=== PATIENT | male | born 1995 | race Caucasian/White ===

== ENCOUNTER 2019-10-05 11:26 | Emergency (ER) | payer SELFPAY ==
[~2019-10-05] VITALS: Ht 175.3 cm; Wt 65.8 kg
[2019-10-05 11:46] VITALS: BP 124/65
--- NOTE | 2019-10-05 12:40 | PHYS DOC ---
Past Medical History Past Medical History: No Pertinent History Past Surgical History: No Surgical History Alcohol Use: Rarely Drug Use: None Adult General Chief Complaint Chief Complaint: DENTAL PROBLEM [facility] HPI Patient is a 24 year old male who presents to the emergency department with complaints of left upper dental pain for the last 2 days. Patient denies any ear pain, sore throat, cough, nausea, vomiting, diarrhea, headache, dizziness, fever, or rash. Patient currently rates his pain a 7 out of 10 on pain scale he denies any alleviating factors. Patient states he has a dental appointment in a few months to have the tooth taken care of. He denies any pus drainage in his mouth. All other ROS is neg unless otherwise noted in HPI. Review of Systems Review of Systems sEE aBOVE Allergies Allergies Allergies Coded Allergies Type Severity Reaction Last Updated Verified No Known Drug Allergies 10/05/19 No Physical Exam Physical Exam See Above Constitutional: Well developed, well nourished, no acute distress, non-toxic appearance. [] HENT: Normocephalic, atraumatic, bilateral external ears normal, bilateral TMs normal oropharynx moist, no oral exudates, nose normal; dental decay noted in left upper quadrant with broken tooth, mild gingival erythema, no visible abscess or fluctuant area noted in the gingiva [] Eyes: PERRLA, EOMI, conjunctiva normal, no discharge. [] Neck: Normal range of motion, no tenderness, supple, no stridor. [] Cardiovascular:Heart rate regular rhythm, no murmur [] Lungs & Thorax: Bilateral breath sounds clear to auscultation; regular respirations, no retractions [] Skin: Warm, dry, no erythema, no rash. [] Extremities: No cyanosis, ROM intact Neurologic: Alert and oriented X 3, no focal deficits noted. [] Psychologic: Affect normal, judgement normal, mood normal. [] Current Patient Data Vital Signs Vital Signs Date Time Temp Pulse Resp B/P (MAP) Pulse Ox O2 Delivery O2 Flow Rate FiO2 10/05/19 11:46 98.0 65 16 124/65 (84) 97 Room Air 98.0 EKG EKG [] Radiology/Procedures Radiology/Procedures [] Course & Med Decision Making Course & Med Decision Making Pertinent Labs and Imaging studies reviewed. (See chart for details) dx: medical screening exam A medical screening exam was performed, patient was found to have no emergent medical condition. The plan of care would've included a prescription for Peridex and naproxen and referral to the dental provider list. However, the patient eloped after talking with registration. [] [] Dragon Disclaimer Dragon Disclaimer This electronic medical record was generated, in whole or in part, using a voice recognition dictation system. Departure Departure Impression: Primary Impression: Encounter for medical screening examination Disposition: HOME, SELF-CARE (pt eloped after speaking with registration) Condition: STABLE Referrals: NO PCP (PCP) Patient Instructions: Medical Screening Exam Additional Instructions: Take Tylenol or ibuprofen as needed for pain. Follow up with dentist using the referral list provided. Return to the ER if symptoms worsen or he develop a fever. MIRIAN PLUNKETT APRN Oct 05, 2019 12:40
== END 2019-10-05 12:46 | disposition home or self-care (01) ==
LOC: ER 11:26
DX: K08.89 Other specified disorders of teeth and supporting structures (principal); K03.81 Cracked tooth
CPT/HCPCS: 99281